=== PATIENT | male | born 1965 | race African-American/Black ===

== ENCOUNTER 2016-07-25 14:32 | Inpatient (IN) | payer OTHER ==
[2016-07-25 17:43] VITALS: BMI 24.1
--- NOTE | 2016-07-25 19:21 | HP ---
[id number] 4d 4-Moderate,w/Arms Extend Anxiety: 4-Mod. Anxious/Guarded Agitation: 4-Moderately Restless Paroxysmal Sweats: 1-Minimal Palms Moist Orientation: 1-Uncertain about Date Tacttile Disturbances: 0-None Auditory Disturbances: 0-None Visual Disturbances: 0-None Headache: 0-None Present CIWA-Ar Total Score: 15 Admission ROS [facility] - HPI Chief Complaint: WITHDRAWAL SX Allergies/Adverse Reactions: Allergies Allergy/AdvReac Type Severity Reaction Status Date / Time haloperidol [From Haldol] Allergy Verified 07/25/16 19:17 haloperidol lactate Allergy Verified 07/25/16 19:17 [From Haldol] History of Present Illness: 50 YEARS OLD MALE WITH LONG HISTORY OF ALCOHOL NICOTINE COCAINE DEPENDENCE HAS HYPERTENSION ASTHMA AND BIPOLAR II IS ADMITTED TO DETOX Exam Limitations: No Limitations - Ebola screening Have you traveled outside of the country in the last 21 days: No Have you had contact with anyone from an Ebola affected area: No Have you been sick,other than usual withdrawal symptoms: No Do you have a fever: No - Review of Systems Constitutional: Chills, Loss of Appetite, Changes in sleep, Unintentional Wgt. Loss, Unexplained wgt Loss EENT: reports: No Symptoms Reported Respiratory: reports: SOB with Exertion Cardiac: reports: No Symptoms Reported GI: reports: Nausea, Poor Appetite, Poor Fluid Intake, Indigestion, Abdominal cramping : reports: No Symptoms Reported Musculoskeletal: reports: Back Pain Integumentary: reports: No Symptoms Reported Neuro: reports: Tremors Endocrine: reports: No Symptoms Reported Hematology: reports: No Symptoms Reported Psychiatric: reports: Judgement Intact, Anxious, Depressed Other Systems: Reviewed and Negative Patient History - Patient Medical History Hx Anemia: No Hx Asthma: Yes Hx Chronic Obstructive Pulmonary Disease (COPD): No Hx Cancer: No Hx Cardiac Disorders: No Hx Congestive Heart Failure: No Hx Hypertension: Yes Hx Hypercholesterolemia: No Hx Pacemaker: No HX Cerebrovascular Accident: No Hx Seizures: No Hx Dementia: No Hx Diabetes: No Hx Gastrointestinal Disorders: Yes Hx Liver Disease: No Hx Genitourinary Disorders: No Hx Sexually Transmitted Disorders: No Hx Renal Disease (ESRD): No Hx Thyroid Disease: No Hx Human Immunodeficiency Virus (HIV): No Hx Hepatitis C: No Hx Depression: No Hx Suicide Attempt: No Hx Bipolar Disorder: Yes Hx Schizophrenia: No - Patient Surgical History Past Surgical History: Yes Hx Cataract Extraction: Yes ( RIGHT EYE 1984) Hx Orthopedic Surgery: Yes (1999 LEFT HAND ) Anesthesia Reaction: No - PPD History Previous Implant?: Yes Documented Results: Negative w/o proof Implanted On Prior [facility] Admission?: No PPD to be Administered?: Yes - Smoking Cessation Smoking history: Current every day smoker Have you smoked in the past 12 months: Yes Aproximately how many cigarettes per day: 5 Cigars Per Day: 0 Hx Chewing Tobacco Use: No Initiated information on smoking cessation: Yes 'Breaking Loose' booklet given: 07/25/16 - Substance & Tx. History Hx Alcohol Use: Yes Hx Substance Use: Yes Substance Use Type: Alcohol, Cocaine Hx Substance Use Treatment: Yes - Substances Abused Alcohol Route: Oral Frequency: Daily Amount used: PINT VOLMILLI Age of first use: 48 Date of Last Use: 07/25/16 Family Disease History - Family Disease History Family Disease History: Diabetes: Brother, [place]: Father () Admission Physical Exam S - Vital Signs Vital Signs: Vital Signs - 24 hr 07/25/16 17:40 Temperature 98 F Pulse Rate 80 Respiratory 20 Rate Blood Pressure 154/92 - Physical General Appearance: Yes: Appropriately Dressed, Mild Distress, Alcohol on Breath , Thin, Tremorous, Irritable, Sweating, Anxious HEENTM: Yes: Hearing grossly Normal, Normal ENT Inspection, Normocephalic, Normal Voice Respiratory: Yes: Chest Non-Tender, Lungs Clear, Normal Breath Sounds, No Respiratory Distress, No Accessory Muscle Use Neck: Yes: Supple, Trachea in good position Breast: Yes: Breasts Symetrical Cardiology: Yes: Regular Rhythm, Regular Rate, S1, S2 Abdominal: Yes: Non Tender, Soft Genitourinary: Yes: Within Normal Limits Back: Yes: Normal Inspection Musculoskeletal: Yes: full range of Motion, Gait Steady, Back pain Extremities: Yes: Normal Inspection, Normal Range of Motion, Non-Tender, Tremors Neurological: Yes: Alert, Motor Strength 5/5, Normal Response, Depressed Affect Integumentary: Yes: Warm Lymphatic: Yes: Within Normal Limits - Diagnostic (1) Alcohol dependence with uncomplicated withdrawal Status: Acute (2) Methadone maintenance therapy patient Status: Chronic Comment: 60 MG VERIFICAITON PENDING (3) Weight loss Status: Acute (4) Nicotine dependence Status: Acute Qualifiers: Nicotine product type: cigarettes Substance use status: in withdrawal Qualified Code(s): F17.213 - Nicotine dependence, cigarettes, with withdrawal (5) Hypertension Status: Chronic Qualifiers: Hypertension type: essential hypertension Qualified Code(s): I10 - Essential (primary) hypertension (6) Asthma Status: Chronic Qualifiers: Asthma severity: mild intermittent Asthma complication type: with status asthmaticus Qualified Code(s): J45.22 - Mild intermittent asthma with status asthmaticus (7) Bipolar II disorder Status: Suspected (8) GERD (gastroesophageal reflux disease) Status: Chronic Qualifiers: Esophagitis presence: without esophagitis Qualified Code(s): K21.9 - Gastro-esophageal reflux disease without esophagitis Cleared for Admission B[facility] - Detox or Rehab B[facility] Level of Care: Medically Managed Detox Regimen/Protocol: Librium BHS Breath Alcohol Content Breath Alcohol Content: 0.017 Urine Drug Screen - Results Drug Screen Negative: Yes Urine Drug Screen Results: BRETT-Cocaine, OPI-Opiates, MTD-Methadone
[2016-07-25] MEDS ORDERED: MENTHOL/PHENOL 1 EACH UD MM PRN (19:24)
[2016-07-25] MEDS ORDERED: NICOTINE POLACRILEX 2 MG GUM BC PRN (19:24)
[2016-07-25] MEDS ORDERED: MAGNESIUM CITRATE 300 ML BOTTLE PO PRN (19:24)
[2016-07-25] MEDS ORDERED: MAGNESIUM HYDROX 2400MG/30ML ORAL SUSPENSION 30 ML CUP PO PRN (19:24)
[2016-07-25] MEDS ORDERED: guaiFENesin/D-METHORPHAN HB 10 ML UNIT-DOSE CUPS PO PRN (19:24)
[2016-07-25] MEDS ORDERED: P-EPHED 60MG/TRIPROLIDI 2.5MG TABLET PO PRN (19:24)
[2016-07-25] MEDS ORDERED: chlordiazePOXIDE HCL 25 MG CAPSULE PO PRN (19:24)
[2016-07-25] MEDS ORDERED: LOPERAMIDE HCL 2 MG CAPSULE PO PRN (19:24)
[2016-07-25] MEDS ORDERED: MAG HYDROX/AL HYDROX/SIMETH 30 ML UNIT-DOSE CUP PO PRN (19:24)
[2016-07-25] MEDS ORDERED: ACETAMINOPHEN 325 MG TABLET (FP) PO PRN (19:24)
[2016-07-25] MEDS ORDERED: diphenhydrAMINE HCL 50 MG CAPSULE PO PRN (19:24)
[2016-07-25] MEDS ORDERED: cloNIDine HCL 0.1 MG TABLET PO PRN (19:27)
[2016-07-25] MEDS ORDERED: ALBUTEROL SO4 2.5/IPRATROPIUM 0.5 INH SOL 3 ML VIAL.NEB. NEB PRN (19:28)
[2016-07-25] MEDS ORDERED: ALBUTEROL SO4 6.7 GM HFA INHALER IH PRN (19:28)
[2016-07-25] MEDS ORDERED: RANITIDINE HCL 150 MG TABLET (FP) PO SCH (22:00)
[2016-07-25] MEDS ORDERED: THIAMINE HCL 100 MG TABLET (FP) PO SCH (22:00)
[2016-07-25] MEDS: chlordiazePOXIDE HCL 25 MG CAPSULE PO SCH (22:45)
[2016-07-25 23:21] LABS: URINE APPEARANCE CLEAR; URINE BILIRUBIN NEGATIVE (NEGATIVE); URINE BLOOD NEGATIVE (NEGATIVE); URINE COLOR LTYELLOW; URINE GLUCOSE (UA) NEGATIVE (NEGATIVE); URINE KETONE NEGATIVE (NEGATIVE); URINE LEUK ESTERASE NEGATIVE (NEGATIVE); URINE NITRITE NEGATIVE (NEGATIVE); URINE PROTEIN NEGATIVE (NEGATIVE); URINE UROBILINOGEN NEGATIVE E.U./dl (0.2-1.0)
[2016-07-26] MEDS: chlordiazePOXIDE HCL 25 MG CAPSULE PO SCH (06:08)
[2016-07-26 06:21] VITALS: BP 155/91; PULSE 71; TEMP 97.4
[2016-07-26] MEDS ORDERED: METHADONE HCL 40 MG DISPERSABLE TABLET PO SCH (07:30)
[2016-07-26] MEDS ORDERED: METHADONE 40 MG, METHADONE 20 MG PO SCH (07:45)
[2016-07-26] MEDS ORDERED: METHADONE HCL 10 MG TABLET ONE (08:12)
[2016-07-26] MEDS ORDERED: METHADONE HCL 40 MG DISPERSABLE TABLET ONE (08:13)
--- NOTE | 2016-07-26 09:10 | PN ---
S CIWA - CIWA Score Nausea/Vomitin Muscle Tremors: 3 Anxiety: 3 Agitation: 3 Paroxysmal Sweats: 1-Minimal Palms Moist Orientation: 0-Oriented Tacttile Disturbances: 1-Very Mild Itch/Numbness Auditory Disturbances: 1-Very Mild Visual Disturbances: 1-Very Mild Sensitivity Headache: 2-Mild CIWA-Ar Total Score: 18 BHS Progress Note (SOAP) Subjective: ALERT,IRRITABLE,ANXIOUS,INTERRUPTED SLEEP,TREMOR Objective: 07/26/16 09:08 Vital Signs Temperature 97.4 F L 07/26/16 06:21 Pulse Rate 71 07/26/16 06:21 Respiratory Rate 16 07/26/16 06:21 Blood Pressure 155/91 07/26/16 06:21 O2 Sat by Pulse Oximetry (%) EKG NSR,NORMAL ECG 07/26/16 09:09 Laboratory Last Values Urine Color Ltyellow 07/25/16 23:00 Urine Appearance Clear 07/25/16 23:00 Urine pH 5.0 (5.0-8.0) 07/25/16 23:00 Urine Protein Negative (NEGATIVE) 07/25/16 23:00 Urine Glucose (UA) Negative (NEGATIVE) 07/25/16 23:00 Urine Ketones Negative (NEGATIVE) 07/25/16 23:00 Urine Blood Negative (NEGATIVE) 07/25/16 23:00 Urine Nitrite Negative (NEGATIVE) 07/25/16 23:00 Urine Bilirubin Negative (NEGATIVE) 07/25/16 23:00 Urine Urobilinogen Negative E.U./dl (0.2-1.0) 07/25/16 23:00 Ur Leukocyte Esterase Negative (NEGATIVE) 07/25/16 23:00 LABS PENDING Assessment: 07/26/16 09:09 WITHDRAWAL SYMPTOM Plan: CONTINUE DETOX
[2016-07-26] MEDS ORDERED: PRENATAL VITAMINS W/ FOLIC ACID TABLET (FP) PO SCH (10:00)
[2016-07-26] MEDS ORDERED: NICOTINE 14 MG/24 HOURS TOPICAL PATCH TD SCH (10:00)
--- NOTE | 2016-07-26 10:06 | PN ---
Yo[facility] Progress Note Note: ADDENDUM PATIENT IS NON COMPLIANCE,REFUSED TO FOLLOW UNIT RULES,REFUSED VITAL SIGNS,HAS BEEN DISCUSSED AND SEEN BY COUNSELORS,STAFFS,NURSING STAFFS, ADMINISTRATIVE DISCHARGE,ESCORTED OFF UNIT BY SECURITIES
[2016-07-26 10:12] LABS: MCH 29.3 pg (25.7-33.7); MCHC 32.6 g/dl (32.0-35.9); MEAN CELL VOLUME 89.7 fl (80-96); PLATELET COUNT 365 K/MM3 (134-434); RDW 13.8 % (11.9-15.9); WHITE BLOOD COUNT 9.9 K/mm3 (4.0-10.0)
--- NOTE | 2016-07-26 10:12 | DS ---
[facility] Detox Discharge Summary Admission Date: 07/25/16 Discharge Date: 07/26/16 - History Present History: Alcohol Dependence, MMTP Additional Comments: PATIENT IS NON COMPLIANCE,REFUSED VITAL SIGNS,REFUSED TO COMPLY WITH UNIT RULES, HAS BEEN SEEN BY COUNSELORS AND STAFFS,ADMINISTRATIVE DISCHARGE,ESCORTED OFF UNIT BY SECURITIES Pertinent Past History: HYPERTENSION ASTHMA GERD NICOTINE DEPENDENCE WEIGHT LOSS BIPOLAR 2 DISORDER - Physical Exam Results Vital Signs: Vital Signs Temperature 97.4 F L 07/26/16 06:21 Pulse Rate 71 07/26/16 06:21 Respiratory Rate 16 07/26/16 06:21 Blood Pressure 155/91 07/26/16 06:21 O2 Sat by Pulse Oximetry (%) Pertinent Admission Physical Exam Findings: WITHDRAWAL SYMPTOM - Medication Discharge Medications: Ambulatory Orders Unobtainable [Unobtainable] 07/25/16 - AMA Did Patient Leave Against Medical Advice: No
[2016-07-26 10:40] LABS: ALBUMIN 3.3 g/dl (3.4-5.0); ALK PHOS 122 U/L (45-117); ANION GAP 10 (8-16); BILIRUBIN,TOTAL 0.3 mg/dL (0.2-1.0); CALCIUM 8.7 mg/dL (8.5-10.1); CO2 27 mmol/L (21-32); COCKROFT - GAULT 83.12; GLUCOSE,RANDOM 75 mg/dL (74-106); SGOT/AST 27 U/L (15-37); SGPT/ALT 27 U/L (12-78); TOT PROT 6.5 g/dl (6.4-8.2)
--- NOTE | 2016-07-26 12:05 | EKG ---
Test Reason : Blood Pressure : / mmHG Vent. Rate : 076 BPM Atrial Rate : 076 BPM P-R Int : 144 ms QRS Dur : 092 ms QT Int : 386 ms P-R-T Axes : 068 068 065 degrees QTc Int : 434 ms NORMAL SINUS RHYTHM NORMAL ECG NO PREVIOUS ECGS AVAILABLE Confirmed by BECKY COSTA, KERLINE ([id number]) on 07/26/2016 12:05:22 PM Referred By: Confirmed By:KERLINE PENA MD
--- NOTE | 2016-07-26 14:06 | CONSULT ---
[facility] Psychiatric Consult - Data Date of interview: 07/26/16 Admission source: [facility] Identifying data: Patient not found.Already discharged.
[2016-07-26] MEDS ORDERED: chlordiazePOXIDE HCL 25 MG CAPSULE PO SCH (23:00)
[2016-07-27] MEDS ORDERED: chlordiazePOXIDE 5 MG CAPSULE PO SCH (23:00)
[2016-07-28] MEDS ORDERED: chlordiazePOXIDE HCL 10 MG CAPSULE PO SCH (23:00)
== END 2016-07-26 10:10 | disposition home or self-care (01) | DRG 773 ==
LOC: YASAS 14:32 → Y3N 20:21
PROVIDERS: ADMIT Internal Medicine Addiction Medicine; ATTEND Internal Medicine Addiction Medicine
PROC: HZ2ZZZZ Detoxification Services for Substance Abuse Treatment (ICD-10-PCS; principal; 2016-07-25)
DX: F10.230 Alcohol dependence with withdrawal, uncomplicated (principal); F11.20 Opioid dependence, uncomplicated; F17.210 Nicotine dependence, cigarettes, uncomplicated; F31.81 Bipolar II disorder; I10 Essential (primary) hypertension; J45.909 Unspecified asthma, uncomplicated; K21.9 Gastro-esophageal reflux disease without esophagitis; Z91.19 Patient's noncompliance with other medical treatment and regimen; Z87.898 Personal history of other specified conditions
CPT/HCPCS: 36415; 80053; 81003; 85027; 86593; 93005; 93010